=== PATIENT | male | born 1995 | race Caucasian/White ===

== ENCOUNTER 2023-12-30 13:32 | Emergency (ER) | payer MEDICAID, OTHER ==
[~2023-12-30] VITALS: Ht 180.3 cm; Wt 61.3 kg
[2023-12-30 16:26] LABS: Amphetamine Screen, Urine Neg (NEGATIVE)
[2023-12-30 16:27] LABS: Barbiturate Scree,Urine Neg (NEGATIVE); Benzodiazephine Screen, Urine Neg (NEGATIVE); Cannabinoid Screen, Urine Pos (NEGATIVE); Cocaine Screen, Urine Neg (NEGATIVE); Opiate Scree,Urine Neg (NEGATIVE); Phencyclidine Screen, Urine Neg (NEGATIVE)
[2023-12-31] MEDS: QUEtiapine FUMARATE 25 MG TAB PO SCH (00:09)
[2023-12-31] MEDS: NALOXONE HCL 1MG/ML 2ML SYRINGE ONE (00:54)
[2023-12-31 00:55] VITALS: PULSE 63; RESP 15; RESP 16; O2SAT 98
[2023-12-31] MEDS: NALOXONE HCL 1MG/ML 2ML SYRINGE IV ONE (00:55)
[2023-12-31 01:31] LABS: Amphetamine Screen, Urine Neg (NEGATIVE); Barbiturate Scree,Urine Neg (NEGATIVE); Benzodiazephine Screen, Urine Neg (NEGATIVE); Cocaine Screen, Urine Neg (NEGATIVE); Opiate Scree,Urine Neg (NEGATIVE)
[2023-12-31 01:32] LABS: Cannabinoid Screen, Urine Pos (NEGATIVE); Phencyclidine Screen, Urine Neg (NEGATIVE)
[2023-12-31 02:09] LABS: Basophils # (auto) 0 10 ^3/uL (0-0.2); Basophils % (auto) 0.5 % (0.0-2.0); Eosinophils # (auto) 0 10 ^3/uL (0-0.8); Eosinophils % (auto) 0.5 % (0.0-7.0); Hematocrit 47.4 % (41.0-53.0); Lymphocytes # (auto) 2.1 10 ^3/uL (0.4-5.4); Lymphocytes % (auto) 21.4 % (10.0-50.0); Mean Corpuscular Hemoglobin 32.7 pg (28.0-32.0); Mean Corpuscular Hgb Conc. 33.9 g/dL (32.0-36.0); Mean Corpuscular Volume 96.6 fL (80.0-100.0); Neutrophils # (auto) 6.5 10 ^3/uL (1.6-8.6); Neutrophils % (auto) 67.6 % (37.0-80.0); Red Blood Cells 4.91 10^6/uL (4.5-5.90); Red Cell Distribution Width 13.6 % (11.8-14.3); White Blood Cell 9.6 10^3/uL (4.4-10.8)
[2023-12-31 02:26] LABS: Alanine Aminotransferase 15 U/L (7-40); Albumin 4.7 g/dL (3.2-4.8); Alkaline Phosphatase 119 U/L (46-116); Anion Gap 13 (5-15); Aspartate Aminotransferase 22 U/L (13-40); BUN/Creatinine Ratio 14.5 (10.0-20.0); Bilirubin, Total 1.3 mg/dL (0.2-1.0); Blood Urea Nitrogen 12 mg/dL (9-23); Carbon Dioxide 22 mmol/L (20-30); Chloride 105 mmol/L (98-107); Creatine Kinase IFCC 119 U/L (46-171); Glucose 89 mg/dL (74-106); Sodium 140 mmol/L (136-145); Total Protein 7.5 g/dL (5.7-8.2)
[2023-12-31 08:45] VITALS: PULSE 77; RESP 14; O2SAT 97
[2024-01-01 07:50] VITALS: BP 119/78; PULSE 60; RESP 16; TEMP 97.9; O2SAT 97
== END 2024-01-01 08:27 | disposition left against medical advice (07) ==
LOC: EDBD 13:32 → ER 13:32
DX: F15.10 Other stimulant abuse, uncomplicated (principal); R51.9 Headache, unspecified; R07.89 Other chest pain
CPT/HCPCS: 36415; 70450; 71045; 80053; 80307; 82550; 82962; 85025; 96374; 99285; J2310

== ENCOUNTER 2024-01-03 03:34 | Emergency (ER) | payer MEDICAID ==
[~2024-01-03] VITALS: Ht 172.7 cm; Wt 72.6 kg
[2024-01-03 04:16] LABS: Basophils # (auto) 0 10 ^3/uL (0-0.2); Basophils % (auto) 0.3 % (0.0-2.0); Eosinophils # (auto) 0.1 10 ^3/uL (0-0.8); Eosinophils % (auto) 1.2 % (0.0-7.0); Hematocrit 48.4 % (41.0-53.0); Lymphocytes # (auto) 1.3 10 ^3/uL (0.4-5.4); Lymphocytes % (auto) 17.6 % (10.0-50.0); Mean Corpuscular Hemoglobin 31.8 pg (28.0-32.0); Mean Corpuscular Hgb Conc. 33.1 g/dL (32.0-36.0); Mean Corpuscular Volume 96.3 fL (80.0-100.0); Monocytes # (auto) 0.7 10 ^3/uL (0-1.3); Neutrophils # (auto) 5.2 10 ^3/uL (1.6-8.6); Neutrophils % (auto) 70.9 % (37.0-80.0); Red Blood Cells 5.02 10^6/uL (4.5-5.90); Red Cell Distribution Width 13.6 % (11.8-14.3); White Blood Cell 7.3 10^3/uL (4.4-10.8)
[2024-01-03 04:31] LABS: Alanine Aminotransferase 18 U/L (7-40); Albumin 4.8 g/dL (3.2-4.8); Alkaline Phosphatase 113 U/L (46-116); Anion Gap 5 (5-15); Aspartate Aminotransferase 29 U/L (13-40); BUN/Creatinine Ratio 9.9 (10.0-20.0); Bilirubin, Total 1.1 mg/dL (0.2-1.0); Blood Urea Nitrogen 8 mg/dL (9-23); Calcium 10.3 mg/dL (8.5-10.1); Carbon Dioxide 29 mmol/L (20-30); Chloride 105 mmol/L (98-107); Creatine Kinase IFCC 96 U/L (46-171); Glucose 108 mg/dL (74-106); Potassium 4.4 mmol/L (3.5-5.1); Sodium 139 mmol/L (136-145); Total Protein 7.8 g/dL (5.7-8.2)
[2024-01-03 06:30] VITALS: BP 118/72
[2024-01-03 06:45] VITALS: PULSE 55; RESP 13; O2SAT 99
[2024-01-03 07:52] VITALS: PULSE 53; RESP 13; O2SAT 98
[2024-01-03] MEDS: SODIUM CHLORIDE 0.9% 1,000 ML IV ONE ×2 (09:19)
[2024-01-03] MEDS ORDERED: HYDR50CA2 PO (21:14)
[2024-01-03] MEDS ORDERED: ATOM80CA PO (21:14)
[2024-01-03] MEDS ORDERED: OXCA300T50 PO (21:14)
== END 2024-01-03 09:37 | disposition left against medical advice (07) ==
LOC: EDUNIT# 03:34 → ER 03:34 → EDBD 03:34 → ER 09:37
DX: F29 Unspecified psychosis not due to a substance or known physiological condition (principal); F41.9 Anxiety disorder, unspecified
CPT/HCPCS: 36415; 80053; 82550; 85025; 93005

== ENCOUNTER 2024-01-03 15:24 | Inpatient (IN) | payer MEDICAID ==
[~2024-01-03] VITALS: Ht 172.7 cm; Wt 72.6 kg
[2024-01-03 15:26] VITALS: PULSE 69; RESP 14; O2SAT 94
[2024-01-03] MEDS: NALOXONE HCL 1MG/ML 2ML SYRINGE IV ONE (15:29)
[2024-01-03] MEDS: SODIUM CHLORIDE 0.9% 1,000 ML IVB ONE (15:40)
[2024-01-03 16:04] LABS: Basophils # (auto) 0 10 ^3/uL (0-0.2); Basophils % (auto) 0.4 % (0.0-2.0); Eosinophils # (auto) 0.1 10 ^3/uL (0-0.8); Eosinophils % (auto) 1.6 % (0.0-7.0); Hematocrit 43.1 % (41.0-53.0); Hemoglobin 14.5 g/dL (13.5-17.5); Lymphocytes # (auto) 1.6 10 ^3/uL (0.4-5.4); Lymphocytes % (auto) 24.1 % (10.0-50.0); Mean Corpuscular Hemoglobin 31.9 pg (28.0-32.0); Mean Corpuscular Hgb Conc. 33.6 g/dL (32.0-36.0); Mean Corpuscular Volume 94.9 fL (80.0-100.0); Monocytes # (auto) 0.7 10 ^3/uL (0-1.3); Monocytes % (auto) 11.1 % (0.0-12.0); Neutrophils # (auto) 4.1 10 ^3/uL (1.6-8.6); Neutrophils % (auto) 62.8 % (37.0-80.0); Nucleated Red Blood Cells % 0.1 %; Red Blood Cells 4.54 10^6/uL (4.5-5.90); Red Cell Distribution Width 13.5 % (11.8-14.3); White Blood Cell 6.4 10^3/uL (4.4-10.8)
[2024-01-03 16:12] LABS: Chloride 106 mmol/L (98-107); Potassium 4.1 mmol/L (3.5-5.1); Sodium 141 mmol/L (136-145)
[2024-01-03 16:13] LABS: Anion Gap 6 (5-15); Carbon Dioxide 29 mmol/L (20-30)
[2024-01-03 16:14] LABS: Calcium 9.9 mg/dL (8.5-10.1)
[2024-01-03 16:18] LABS: BUN/Creatinine Ratio 13.9 (10.0-20.0); Blood Urea Nitrogen 11 mg/dL (9-23); Glucose 92 mg/dL (74-106)
[2024-01-03 16:19] LABS: Blood Alcohol < 3.0 mg/dL (<10)
[2024-01-03 18:22] LABS: Amphetamine Screen, Urine Neg (NEGATIVE); Barbiturate Scree,Urine Neg (NEGATIVE); Benzodiazephine Screen, Urine Neg (NEGATIVE); Cannabinoid Screen, Urine Pos (NEGATIVE); Cocaine Screen, Urine Neg (NEGATIVE); Opiate Scree,Urine Neg (NEGATIVE); Phencyclidine Screen, Urine Neg (NEGATIVE)
[2024-01-03] MEDS ORDERED: OXCA300T50 PO (21:14)
[2024-01-03] MEDS ORDERED: ATOM80CA PO (21:14)
[2024-01-03] MEDS ORDERED: HYDR50CA2 PO (21:14)
[2024-01-03] MEDS ORDERED: NITROGLYCERIN 0.4 MG SL TAB SL PRN ×2 (21:15→21:30)
[2024-01-03] MEDS ORDERED: ACETAMINOPHEN 325 MG TAB PO PRN ×2 (21:15→21:30)
[2024-01-03] MEDS ORDERED: MORPHINE SULFATE INJ 2 MG/ml SYRG IV PRN ×4 (21:15→21:30)
[2024-01-03] MEDS ORDERED: ONDANSETRON HCL 4 MG/2 ML VIAL IV PRN ×2 (21:15→21:30)
[2024-01-03] MEDS ORDERED: HYDROcodone-ACET 5/325MG TAB PO PRN ×2 (21:15→21:30)
[2024-01-03] MEDS ORDERED: DOCUSATE SOD 100 MG CAP PO PRN ×2 (21:15→21:30)
[2024-01-03 21:34] VITALS: PULSE 60; RESP 13; O2SAT 98
[2024-01-03] MEDS: OXCARBAZEPINE 300 MG PO SCH (22:00)
[2024-01-03] MEDS ORDERED: HYDROXYZINE PAMOATE PO SCH (22:00)
[2024-01-03] MEDS ORDERED: OXCARBAZEPINE PO SCH (22:00)
[2024-01-04] VITALS: BP 131/83; RESP 16; O2SAT 95
[2024-01-04 04:00] VITALS: PULSE 59
[2024-01-04] MEDS: hydrOXYzine 25 MG TAB or CAP PO SCH (05:40)
[2024-01-04] MEDS: ATOMOXETINE HCL 80 MG PO SCH (06:53)
[2024-01-04] MEDS ORDERED: ATOMOXETINE HCL PO SCH (07:00)
[2024-01-04 08:19] LABS: Basophils # (auto) 0 10 ^3/uL (0-0.2); Basophils % (auto) 0.4 % (0.0-2.0); Eosinophils # (auto) 0.1 10 ^3/uL (0-0.8); Hematocrit 46.3 % (41.0-53.0); Hemoglobin 15.8 g/dL (13.5-17.5); Lymphocytes % (auto) 18.7 % (10.0-50.0); Mean Corpuscular Hemoglobin 32.5 pg (28.0-32.0); Mean Corpuscular Volume 95.6 fL (80.0-100.0); Monocytes # (auto) 0.4 10 ^3/uL (0-1.3); Monocytes % (auto) 7.3 % (0.0-12.0); Neutrophils % (auto) 71.6 % (37.0-80.0); Nucleated Red Blood Cells % 0.1 %; Red Blood Cells 4.84 10^6/uL (4.5-5.90); Red Cell Distribution Width 13.2 % (11.8-14.3); White Blood Cell 5.6 10^3/uL (4.4-10.8)
[2024-01-04 08:36] LABS: Alanine Aminotransferase 15 U/L (7-40); Albumin 4.8 g/dL (3.2-4.8); Alkaline Phosphatase 114 U/L (46-116); Anion Gap 6 (5-15); Aspartate Aminotransferase 21 U/L (13-40); BUN/Creatinine Ratio 10.8 (10.0-20.0); Blood Urea Nitrogen 9 mg/dL (9-23); Calcium 10.4 mg/dL (8.5-10.1); Carbon Dioxide 30 mmol/L (20-30); Chloride 104 mmol/L (98-107); Glucose 97 mg/dL (74-106); Potassium 4.8 mmol/L (3.5-5.1); Sodium 140 mmol/L (136-145)
[2024-01-04 08:37] LABS: Total Protein 7.8 g/dL (5.7-8.2)
[2024-01-04] MEDS: PANTOPRAZOLE 40 MG TAB PO SCH (11:50)
== END 2024-01-04 13:52 | disposition left against medical advice (07) | DRG 812 ==
LOC: EDBD 15:24 → ER 15:24 → TELE 21:06 → ER 21:07 → TELE 21:07
PROVIDERS: ADMIT Internal Medicine; ATTEND Internal Medicine
DX: T50.991A Poisoning by other drugs, medicaments and biological substances, accidental (unintentional), initial encounter (principal); G92.8 Other toxic encephalopathy; I30.9 Acute pericarditis, unspecified; F31.9 Bipolar disorder, unspecified; Z53.29 Procedure and treatment not carried out because of patient's decision for other reasons; F90.9 Attention-deficit hyperactivity disorder, unspecified type; F14.10 Cocaine abuse, uncomplicated; Z88.8 Allergy status to other drugs, medicaments and biological substances; Y92.89 Other specified places as the place of occurrence of the external cause
CPT/HCPCS: 36415; 80048; 80053; 80307; 80320; 84484; 85025; 93005; 96360; 99291; G0378

== ENCOUNTER 2024-01-11 20:35 | Emergency (ER) | payer MEDICAID ==
[~2024-01-11] VITALS: Ht 182.9 cm; Wt 58.0 kg
[~2024-01-11 20:35] MED LIST: ATOM80CA PO; HYDR50CA2 PO; OXCA300T50 PO
[2024-01-11 21:17] LABS: Urine Bacteria None Seen /hpf (None Seen)
[2024-01-11 21:47] LABS: Urine Blood 3+ /uL (Negative); Urine Clarity Ex.Turbid (Clear); Urine Color Light-Red (Yellow); Urine Protein, UAD 1+ (Negative); Urine Specific Gravity 1.013 (1.001-1.035); Urine Urobilinogen Normal (Negative); Urine WBC 876 /hpf (0 - 3); Urine WBC Clumps PRESENT /hpf (None Seen)
[2024-01-11 21:48] LABS: Basophils # (auto) 0 10 ^3/uL (0-0.2); Basophils % (auto) 0.5 % (0.0-2.0); Eosinophils # (auto) 0 10 ^3/uL (0-0.8); Eosinophils % (auto) 0.4 % (0.0-7.0); Hematocrit 45.8 % (41.0-53.0); Hemoglobin 15.2 g/dL (13.5-17.5); Lymphocytes # (auto) 1.5 10 ^3/uL (0.4-5.4); Mean Corpuscular Hemoglobin 31.9 pg (28.0-32.0); Mean Corpuscular Hgb Conc. 33.3 g/dL (32.0-36.0); Mean Corpuscular Volume 95.9 fL (80.0-100.0); Monocytes # (auto) 0.7 10 ^3/uL (0-1.3); Monocytes % (auto) 9.6 % (0.0-12.0); Neutrophils # (auto) 5.1 10 ^3/uL (1.6-8.6); Neutrophils % (auto) 69.5 % (37.0-80.0); Red Blood Cells 4.77 10^6/uL (4.5-5.90); Red Cell Distribution Width 13.5 % (11.8-14.3); White Blood Cell 7.4 10^3/uL (4.4-10.8)
[2024-01-11 22:07] LABS: Alanine Aminotransferase 21 U/L (7-40); Alkaline Phosphatase 134 U/L (46-116); Calcium 10.2 mg/dL (8.5-10.1); Carbon Dioxide 30 mmol/L (20-30); Chloride 104 mmol/L (98-107); Glucose 91 mg/dL (74-106); Potassium 4.1 mmol/L (3.5-5.1); Sodium 138 mmol/L (136-145)
[2024-01-11 22:08] LABS: Albumin 4.7 g/dL (3.2-4.8); Anion Gap 4 (5-15); Aspartate Aminotransferase 25 U/L (13-40); BUN/Creatinine Ratio 8.9 (10.0-20.0); Bilirubin, Total 0.5 mg/dL (0.2-1.0); Blood Urea Nitrogen 7 mg/dL (9-23); Total Protein 7.7 g/dL (5.7-8.2)
[2024-01-11] MEDS ORDERED: HYDR-4902 PO (23:16)
[2024-01-11] MEDS ORDERED: CEPH500C PO (23:16)
[2024-01-11] MEDS ORDERED: TAMS0.4C36 PO (23:16)
[2024-01-11] MEDS ORDERED: IBUP-1455 PO (23:16)
[2024-01-11 23:31] VITALS: BP 143/93; PULSE 50; RESP 17; O2SAT 100
== END 2024-01-11 23:45 | disposition home or self-care (01) ==
LOC: ER 20:35
DX: N20.0 Calculus of kidney (principal); N39.0 Urinary tract infection, site not specified; F41.9 Anxiety disorder, unspecified; Z88.8 Allergy status to other drugs, medicaments and biological substances; Z87.891 Personal history of nicotine dependence
CPT/HCPCS: 36415; 74176; 80053; 81001; 85025

== ENCOUNTER 2024-01-16 01:43 | Emergency (ER) | payer MEDICAID ==
[~2024-01-16] VITALS: Ht 175.3 cm; Wt 72.0 kg
[~2024-01-16 01:43] MED LIST changes: +CEPH500C PO; +HYDR-4902 PO; +IBUP-1455 PO; +TAMS0.4C36 PO
[2024-01-16 02:45] VITALS: PULSE 72; RESP 16; O2SAT 99
[2024-01-16 03:00] VITALS: BP 154/101; PULSE 99; RESP 20; TEMP 98.2; O2SAT 99
== END 2024-01-16 05:11 | disposition home or self-care (01) ==
LOC: EDBD 01:43 → ER 01:43
DX: T40.2X1A Poisoning by other opioids, accidental (unintentional), initial encounter (principal); F41.9 Anxiety disorder, unspecified; F31.9 Bipolar disorder, unspecified; F90.9 Attention-deficit hyperactivity disorder, unspecified type; F19.10 Other psychoactive substance abuse, uncomplicated; Z88.8 Allergy status to other drugs, medicaments and biological substances; Y92.89 Other specified places as the place of occurrence of the external cause
CPT/HCPCS: 93005